=== PATIENT | female | born 1960 | race Caucasian/White ===

== ENCOUNTER 2018-10-04 04:34 | Emergency (ER) | payer BC, OTHER ==
[~2018-10-04] VITALS: Ht 175.3 cm; Wt 93.9 kg
[~2018-10-04 04:34] MED LIST: CALCIUM 600 +1 EAC2 PO; DICLOFENAC POTA50 MG PO; GLUCOSAMINE H1500 MG PO; MAGNESIUM PO; METAXALONE800 MG PO; MINASTRIN PO; MULTIVITAMINS1 EAC8 PO; NABUMETONE750 MG PO; TRICOR145 MG PO; TYLENOL WITH C1 EACH PO; VITAMIN C1000 MG PO; Z LOESTRIN PO; Z.0.AMLODIPINE BESY1 PO; Z.0.LISINOPRIL40 MG PO; Z.2.METFORMIN HCL500 PO
[2018-10-04] MEDS ORDERED: KEFLEX500 MG PO ×2 (05:17)
== END 2018-10-04 05:40 | disposition home or self-care (01) ==
LOC: FSED 04:34
DX: J02.0 Streptococcal pharyngitis (principal); I10 Essential (primary) hypertension; E11.9 Type 2 diabetes mellitus without complications; E78.5 Hyperlipidemia, unspecified
CPT/HCPCS: 83518; 87400; 99283

== ENCOUNTER → 2025-04-14 | Day surgery (SDC) | payer BC ==
[~2025-04-14] MED LIST changes: +ACETAMINOPHEN 1000 MG/100 ML 100 ML IV ONE; +FENTANYL CITRATE/PF 100MCG/2 ML INJ ONE; +FERROUS SULFAT325 MG PO; +GLIPIZIDE ER5 MG PO; +GLUCOSAMINE &1 EACH PO; +JARDIANCE25 MG PO; +KEFLEX500 MG PO; +LIDOCAINE HCL 2% LOCAL INJ 5 ML SDV VIAL INJ ONE; +LIPITOR10 MG PO; +MAGNESIUM OXID400 MG PO; +MOUNJARO7.5 MG/0.5 SC; +NAPROSYN500 MG PO; +ONDANSETRON HCL INJ 2MG/ML 2ML 2 MG/ML VIAL ONE; +OYSTER SHELL 51 EACH PO; +OZEMPIC0.25 MG/02 SC; +PROPOFOL IV EMULSION 10 MG/ML 20 ML VIAL ONE; +SEVOFLURANE INHAL SOLN 250 ML PEN BTL ONE; +VISION SHIELD PO; +VIT C PO; +ZINC PO; +[UNRECOGNIZED DRUG - SUPPLY] PO
[2025-04-14] MEDS: CEFTRIAXONE 1 GM VIAL ONE (05:46)
[2025-04-14] MEDS: LACTATED RINGER'S 1,000 ML ONE (05:46)
[2025-04-14 06:32] LABS: EST GLOMERULAR FILTRATION RATE 81.0 ML/MIN (>=60)
[2025-04-14] MEDS: ACETAMINOPHEN/CODEINE 300MG - 30MG TAB ONE (08:29)
[2025-04-14 08:40] VITALS: BP 142/84; RESP 17; O2SAT 97
== END | disposition home or self-care (01) ==
LOC: OR 05:32
PROVIDERS: ATTEND Urology
DX: N20.0 Calculus of kidney (principal); N39.0 Urinary tract infection, site not specified; R31.0 Gross hematuria; R31.29 Other microscopic hematuria; N28.1 Cyst of kidney, acquired; I10 Essential (primary) hypertension; E78.5 Hyperlipidemia, unspecified; E11.9 Type 2 diabetes mellitus without complications; Z79.84 Long term (current) use of oral hypoglycemic drugs; D64.9 Anemia, unspecified; E66.01 Morbid (severe) obesity due to excess calories; Z68.30 Body mass index [BMI] 30.0-30.9, adult; Z79.899 Other long term (current) drug therapy
CPT/HCPCS: 36415; 50590; 74018; 80048; 82948; J0131; J0696; J2003; J2405; J2704; J3010; J7121